=== PATIENT | male | born 1940 | race Caucasian/White ===

== ENCOUNTER 2019-01-15 04:29 | Observation (INO) ==
--- NOTE | 2019-01-15 04:49 | PROVIDER DOCUMENTATION ---
HPI-Syncope/Dizziness - General Chief Complaint: Near Syncope Stated Complaint: syncope Time Seen by Provider: 01/15/19 04:36 Allergies/Adverse Reactions: Patient Allergies Allergy/AdvReac Type Severity Reaction Status Date / Time morphine Allergy Severe Unknown Verified 09/24/13 13:36 Home Medications: Home Medication List Medication Instructions Recorded Confirmed Last Taken Type ATORVAstatin [Lipitor] 20 mg PO DAILY 06/18/12 01/15/19 09/28/13 03:00 History 20 Losartan [Cozaar] 50 mg PO DAILY 06/18/12 01/15/19 09/28/13 03:00 History 50 Aspirin EC 81 mg PO DAILY 01/15/19 01/15/19 Unknown History Cetirizine HCl [Zyrtec] 10 mg PO DAILY PRN PRN 01/15/19 01/15/19 Unknown History Latanoprost [Xalatan] 1 drp BOTH EYES QHS 01/15/19 01/15/19 Unknown History Loratadine [Claritin] 1 tab PO DAILY PRN PRN 01/15/19 01/15/19 Unknown History Meloxicam 1 cap PO DIRECTED 01/15/19 01/15/19 Unknown History Montelukast [Singulair] 10 mg PO DAILY 01/15/19 01/15/19 Unknown History Omeprazole 1 cap PO DAILY 01/15/19 01/15/19 Unknown History Indapamide 1.25 mg PO DAILY #0 01/16/19 01/15/19 09/28/13 03:00 Rx 1.25 - History of Present Illness-Syncope/Dizzy Nature of Presenting Problem: Patient reports awakening with substernal chest burning. After about an hour and a half, he went to go toward the bathroom to have a bowel movement when he passed out. States that he is still having mild chest burning. Denies any headache or head injury. Denies any recent similar symptoms and denies any prodromal nausea or lightheadedness Prior Episodes: reports: no prior history, single episode today Review of Systems - Adult - REVIEW OF SYSTEMS - ADULT Constitutional: reports: no symptoms reported Eyes: reports: no symptoms reported Ears, Nose, Mouth & Throat: reports: no symptoms reported Cardiovascular: reports: see HPI Respiratory: reports: no symptoms reported Gastrointestinal: reports: see HPI Genitourinary: reports: no symptoms reported Musculoskeletal: reports: no symptoms reported Integumentary: reports: no symptoms reported Neurological: reports: see HPI Psychiatric: reports: no symptoms reported Endocrine: reports: no symptoms reported Hematologic/Lymphatic: reports: no symptoms reported Allergic/Immunologic: reports: no symptoms reported Past History - Adult - PAST MEDICAL HISTORY-ADULT Review of Records: reports: Old Records Reviewed Physical Exam-General - PHYSICAL EXAM-ADULT Initial Vital Signs Reviewed: Yes - CONSTITUTIONAL General Appearance: appears well - EYES Eyes: PERRL/EOMI, pink conjunctivae - HEAD, EARS, NOSE, MOUTH & THROAT HENMT: normocephalic/atraumatic, moist mucous membranes, pharynx normal - NECK Neck: non-tender, full range of motion - RESPIRATORY Respiratory: chest non-tender, lungs clear, normal breath sounds, no pleuratic chest pain, no respiratory distress, no accessory muscle use - CARDIOVASCULAR Cardiovascular: normal peripheral pulses, regular rate, rhythm, no edema, no gallop - GASTROINTESTINAL (ABDOMEN) Abdominal Exam: non tender, soft, no organomegaly - LYMPHATIC Lymphatic: no adenopathy - MUSCULOSKELETAL Back Exam: normal inspection, no CVA tenderness Extremity: normal range of motion, non-tender, normal gait, normal inspection, no pedal edema - SKIN Integumentary: normal color, normal turgor, warm/dry - NEUROLOGIC Neurologic: 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 Routine AdmDCTranf 01/15/19 08:18 Active Activity - Up Ad Bridgett ORDERED Care 01/15/19 08:18 Active Orthostatic Vital Signs Q 8-HR ASSESS Care 01/15/19 08:18 Active Saline Loc DIRECTED Care 01/15/19 08:18 Active Vital Signs Order ROUTINE Care 01/15/19 08:18 Active Z-Document. for Tele Applied ORDERED Care 01/15/19 08:20 Completed Regular Diet Diet 01/15/19 08:20 Completed CHEST-2 VIEWS [RAD] Stat Exams 01/15/19 04:[address] HEAD W/O CONTRAST [CT] Stat Exams 01/15/19 04:49 Completed BASIC METABOLIC PANEL [CHEM] Routine Lab 01/16/19 06:01 Completed CBC WITH ELECTRONIC DIFF [HEME] Routine Lab 01/16/19 06:01 Completed CBC WITH ELECTRONIC DIFF [HEME] Stat Lab 01/15/19 05:23 Completed COMPREHENSIVE METABOLIC PANEL [CHEM] Stat Lab 01/15/19 05:23 Completed PROTIME WITH INR [COAG] Stat Lab 01/15/19 05:23 Completed PTT [COAG] Stat Lab 01/15/19 05:23 Completed TROPONIN T Q8H PRN Lab 01/15/19 09:11 Completed TROPONIN T Stat Lab 01/15/19 05:23 Completed URINALYSIS [URINALYSIS] Stat Lab 01/15/19 17:08 Completed 0.9% Sodium Chloride Inj [Ns] 1,000 ml Med 01/15/19 08:18 Discontinued IV 125 mls/hr Acetaminophen [Tylenol] Med 01/15/19 08:18 Discontinued 650 mg PO Q6H PRN PRN Omeprazole [Prilosec] Med 01/16/19 07:00 Discontinued 20 mg PO DAILY@0700 Ondansetron [Zofran] Med 01/15/19 08:18 Discontinued 4 mg IV Q4H PRN PRN Oxygen Device Routine Oth 01/15/19 08:19 Completed Telemetry [OM.EQ] Routine Oth 01/15/19 08:18 Active Carotid Ultrasound Routine Ther 01/15/19 08:58 Completed EKG [EKG] Stat Ther 01/15/19 04:37 Draft Echo Spec/Color Doppler Routine Ther 01/15/19 08:58 Completed Transfer/Admit Order [TRANSFER] Routine Transfer 01/15/19 08:21 Completed Result Diagrams: 01/16/19 06:01 01/16/19 06:01 - EKG 1 Time of EKG reading by physician:: 04:48 EKG Interpretation (*Must complete 3 of following elements*): Normal Rate: 75 Rhythm: sinus NV Interval: normal ST Wave: normal - CHANGE OF SHIFT REPORT (ED Provider) 1 Report Given and Care Transferred to:: anayeli Time of Transfer: 07:00 Items Pending: Physician Consult/Arrival (admission) Departure - Departure Date of Disposition Decision: 01/15/19 Time of Disposition Decision: 08:00 DIAGNOSIS: Syncope Disposition: ADMITTED INPATIENT 09 Certified Medical Emergency: Emergent Condition: Serious - Critical Care Note This patient required my direct & personal management of CC.: No Attestation - Physician/ RUSSELL Attestation The physician spent face to face time with patient:: Yes Advanced Practice Provider documentation review:: Supervising physician onsite and consulted in the evaluation and care of this patient. The physician did have a face to face encounter with the patient.
--- NOTE | 2019-01-15 05:18 | Diag Imaging Result Doc PS360 ---
EXAM: CT HEAD W/O CONTRAST HISTORY: ams TECHNIQUE: CT head without contrast COMPARISON: None. FINDINGS: No parenchymal hemorrhage. No epidural or subdural hematoma. No subarachnoid hemorrhage. There are mild microvascular ischemic changes. No mass identified on this noncontrasted exam. No hydrocephalus. No sinus opacification. IMPRESSION: 1.No hemorrhage 2.Mild microvascular ischemic changes This exam was performed using automated exposure control, adjustment of mA or kV according to patient size, and/or use of iterative reconstruction technique. Electronically signed by Mario Diallo 01/15/2019 5:16 AM
[2019-01-15 05:42] LABS: BASO# 0.03 X1000 (0.0-0.2); BASO% 0.2 % (0.0-0.8); EOS# 0.07 X1000 (0.0-0.7); EOS% 0.5 % (0.0-10.0); HEMATOCRIT 48.9 % (42.0-52.0); HEMOGLOBIN 16.6 g/dL (14.0-18.0); LYMPH# 1.37 X1000 (1.2-3.4); LYMPH% 10.1 % (20.5-51.1); MCH 27.8 PG (27-31); MCHC 33.9 g/dL (33-37); MCV 81.9 FL (81-99); MONO# 0.94 X1000 (0.11-0.59); MONO% 6.9 % (1.7-9.3); MPV 10.5 FL (7.4-10.4); NEUT# 11.21 X1000 (1.4-6.5); NEUT% 82.3 % (42.2-75.2); PLT 210 X1000 (130-400); RBC 5.97 XMIL (4.7-6.1); RDW 13.5 % (11.5-14.5); WBC 13.62 X1000 (4.8-10.8)
[2019-01-15 05:48] LABS: INR 0.93; PROTIME 13.2 Seconds (11.0-16.0)
[2019-01-15 06:07] LABS: ALB/GLOB RATIO 2.2; ALBUMIN 4.6 g/dL (3.5-5.0); CREATININE 1.3 mg/dL (0.7-1.2); TOTAL BILIRUBIN 0.77 mg/dL (0.20-1.00); TOTAL PROTEIN 6.7 g/dL (6.3-8.3)
--- NOTE | 2019-01-15 07:12 | Diag Imaging Result Doc PS360 ---
EXAM: CHEST-2 VIEWS HISTORY: ams TECHNIQUE: Chest two views COMPARISON: 09/24/2013 FINDINGS: The lungs are well expanded. The heart is not enlarged. The vessels are not distended. There are no infiltrates. No pleural effusions. IMPRESSION: No acute abnormality. Electronically signed by Mario Diallo 01/15/2019 7:10 AM
--- NOTE | 2019-01-15 07:55 | EKG Report ---
Test Performed on : 01/15/2019 04:37:47 AM Test Reason : ED. NO EKG ORDER FOR MUSE Blood Pressure : / mmHG Vent. Rate : 075 BPM Atrial Rate : 075 BPM P-R Int : 144 ms QRS Dur : 080 ms QT Int : 388 ms P-R-T Axes : 047 014 021 degrees QTc Int : 433 ms Normal sinus rhythm. Normal ECG When compared with ECG of 24-SEP-2013 13:19, No significant change was found Unconfirmed Result
[2019-01-15] MEDS ORDERED: NS 1,000 ML IV ONE (08:18)
[2019-01-15] MEDS ORDERED: ZOFRAN IV PRN (08:18)
[2019-01-15] MEDS ORDERED: TYLENOL PO PRN (08:18)
--- NOTE | 2019-01-15 15:34 | HISTORY AND PHYSICAL ---
CHIEF COMPLAINT: A 78-year-old white male woke up in the middle of the night with a burning pain in the substernal region. This was not a dull pressure-like sensation. He did not have shortness of breath or diaphoresis, but just a burning pain. He got up to go in the living room and took some Gaviscon, but as he was sitting in a chair he felt himself becoming weaker and weaker. He came in to get the attention of his because he did not feel well. She stated that he "fell backward like a tree". She stated that he was out for approximately 30 seconds or at least was not responding to her please at that time. He awakened with recollection of all the events and they called an ambulance. He was brought to the emergency room in [place], and had a workup which was fairly unremarkable with a negative CT scan of the head, negative chest x-ray, and generally normal labs with the exception of a slightly elevated troponin level. The patient's burning chest pain did dissipate at some point during the ER visit. PAST MEDICAL HISTORY: 1. Hypertension. 2. Hyperlipidemia. 3. History of chronic back pain. 4. History of gout. 5. Benign prostatic hyperplasia. 6. Known history of hiatal hernia. PAST SURGICAL HISTORY: 1. Lipoma removal. 2. Right hip replacement. 3. Right shoulder replacement. SOCIAL HISTORY: The patient is . He is a former smoker who quit in 1986, but still chews tobacco. HEALTH HISTORY: The patient had a colonoscopy in 2015. Pneumovax in 2013. He had a Myoview GXT in 2017, which showed a possible reversible defect inferiorly versus attenuation. ALLERGIES: Penicillin, hydrochlorothiazide, lisinopril, and morphine. PRESENT MEDICATIONS: 1. Lipitor 20 mg p.o. daily. 2. Prilosec 40 mg p.o. daily. 3. Singular 10 mg p.o. daily. 4. Indapamide 1.25 mg p.o. daily. 5. Losartan 50 mg p.o. daily. 6. Meloxicam 15 mg p.o. daily. REVIEW OF SYSTEMS: Patient denies any fever or chills. He did not have any premonitory symptoms. He stated that during his episode with the burning chest pain that his heart was "pounding hard but not really fast". Again, he denied diaphoresis. He did not have any nausea. He denied any apple abdominal pain. He stated his bowel movements have been normal. Otherwise, digestion has been normal. He has no genitourinary complaints. He has had no fever, weight loss or weight gain. He denies any swelling in his lower extremities. He has not had any other musculoskeletal complaints. PHYSICAL EXAMINATION: The patient is afebrile. Vital signs are stable at the time of my examination. His pulse rate was 79. His blood pressure 117/70 in the supine position. GENERAL: The patient is alert, oriented, conversive and appropriate. HEENT: The sclerae are anicteric. Oral mucosa seems adequately hydrated and normal coloration. NECK: No carotid bruits, JVD or thyromegaly noted. LUNGS: Clear to auscultation. CARDIOVASCULAR: Regular without appreciable murmur or gallop. ABDOMEN: Bowel sounds are present. Soft, nontender, and nondistended. GENITOURINARY: Patient had urinary frequency multiple times during the night, which was one of the things that woke him up initially. Up until last night, he did not have any significant urinary symptoms. EXTREMITIES: No peripheral edema. Peripheral pulses in the upper and lower extremities are easily palpable and symmetrical. NEUROLOGIC: Cranial nerves are intact. He moved all extremities spontaneously in the bed with no deficit. LABORATORY: White cell count 13.6, hemoglobin 16.6, hematocrit 48. Sodium was 146, BUN 16, creatinine 1.3, and glucose 123. Initial troponin was 0.172. I do not see a CK. Urinalysis was ordered, but is not available. ASSESSMENT AND PLAN: 1. The patient had abnormal troponin with some chest pain. I feel that we need to admit him for observation and draw some serial enzymes to make sure that he is okay in that regard. If these were to come back positive, we will consult Cardiology immediately for further input. I am going to get an echocardiogram and carotid ultrasound while getting the sequential cardiac enzymes. He will be on telemetry monitoring. 2. The patient has slightly elevated sodium and relatively hemoconcentration with a creatinine of 1.3 would indicate to me a slight volume contraction. I am going to give him a little fluids, and then recheck all lab parameters in the morning. cc: Gerald Abad MD
[2019-01-15 17:16] LABS: URINE SOURCE VOIDED
[2019-01-15 17:28] LABS: BILIRUBIN URINE NEGATIVE (NEGATIVE); BLOOD URINE NEGATIVE (NEGATIVE); COLOR YELLOW; GLUCOSE URINE NEGATIVE (NEGATIVE); KETONE URINE NEGATIVE (NEGATIVE); LEUKOCYTES URINE NEGATIVE (NEGATIVE); NITRITE URINE NEGATIVE (NEGATIVE); PH URINE 6.5; PROTEIN URINE TRACE mg/dL (NEGATIVE); SP GRAVITY URINE 1.018; TURBIDITY URINE CLEAR (CLEAR); UR EPITHELIAL CELLS <10 /HPF (<10); URINE BACTERIA NEGATIVE /HPF; URINE RBC <10 /HPF (<10); URINE WBC <10 /HPF (<10); UROBILINOGEN URINE 2 mg/dL (NORMAL)
[2019-01-16 06:34] LABS: BASO# 0.02 X1000 (0.0-0.2); BASO% 0.2 % (0.0-0.8); EOS# 0.25 X1000 (0.0-0.7); EOS% 2.4 % (0.0-10.0); HEMATOCRIT 43.5 % (42.0-52.0); IMM GRAN# 0.03 X1000 (0.0-0.04); IMM GRAN% 0.3 % (0.0-0.5); LYMPH# 2.18 X1000 (1.2-3.4); LYMPH% 20.7 % (20.5-51.1); MCH 28.1 PG (27-31); MCHC 34.5 g/dL (33-37); MCV 81.5 FL (81-99); MONO% 8.5 % (1.7-9.3); MPV 10.6 FL (7.4-10.4); NEUT# 7.17 X1000 (1.4-6.5); NEUT% 67.9 % (42.2-75.2); PLT 190 X1000 (130-400); RBC 5.34 XMIL (4.7-6.1); RDW 13.2 % (11.5-14.5); WBC 10.55 X1000 (4.8-10.8)
[2019-01-16 06:54] LABS: AGAP 14; BUN 19 mg/dL (8-22); CALCIUM 7.9 mg/dL (8.8-10.2); CHLORIDE 103 mmol/L (98-107); COSMO 282; CREATININE 1.1 mg/dL (0.7-1.2); ESTIMATED GFR > 60; GLUCOSE 105 mg/dL (70-104); POTASSIUM 3.3 mmol/L (3.5-5.1); SODIUM 140 mmol/L (136-145); TCO2 23 mmol/L (25-35)
[2019-01-16] MEDS ORDERED: PRILOSEC PO SCH (07:00)
[2019-01-16] MEDS ORDERED: KLOR-CON PO ONE (07:06)
[2019-01-16 07:50] VITALS: BP 151/64
[2019-01-16] MEDS ORDERED: COZAAR PO SCH (09:00)
[2019-01-16] MEDS ORDERED: LIPITOR PO SCH (09:00)
[2019-01-16] MEDS ORDERED: ASPIRIN EC PO SCH (09:00)
[2019-01-16] MEDS ORDERED: SINGULAIR PO SCH (09:00)
--- NOTE | 2019-01-16 09:38 | ECHO REPORT ---
ORDER DATE: 01/15/2019 MEASUREMENTS: 1. Septal thickness 1.1. 2. Left ventricular internal diameter diastole 4.6. 3. Posterior wall thickness 1.1. 4. Left ventricular internal diameter in systole 2.9. 5. Aortic root 3.4. 6. Left atrium 3.1. SUMMARY: 1. Adequate quality study. 2. Fibrocalcific changes of aortic valve demonstrated with reduced aortic valve leaflet mobility. Peak gradient across the aortic valve is 28 mmHg with a mean gradient of 17 mmHg. The calculated aortic valve area by Doppler is 1.1 cm2 suggesting moderate aortic stenosis. The aortic root is normal in size. There is mild dilatation of proximal ascending aorta. Mitral, tricuspid and pulmonic valves are without evidence of structural abnormality with trace tricuspid regurgitation and moderate pulmonic insufficiency. The estimated systolic PA pressure by Doppler is 40 mmHg suggesting mild pulmonary hypertension. 3. Normal left ventricular chamber size with mild concentric left hypertrophy is demonstrated. Estimated left ejection fraction appears to be at least 70%. No regional wall abnormalities evident. Left atrium, right atrium, right ventricle are normal in size with grossly preserved right ventricular systolic function. 4. No pericardial effusion. 5. Appearance of inferior vena cava suggests normal central venous pressure. CONCLUSIONS: 1. Moderate aortic stenosis with mild aortic regurgitation. 2. Mild dilatation of proximal ascending aorta. 3. Trace tricuspid regurgitation with mild pulmonary hypertension by Doppler. 4. Mild concentric left hypertrophy with estimated left ejection fraction at least 70%. cc: MD Gerald Strickland MD
== END 2019-01-16 08:50 | disposition home or self-care (01) ==
LOC: SUPCPDRO → ED 04:29 → 4N 04:29
PROVIDERS: ADMIT Internal Medicine; ATTEND Internal Medicine
CPT/HCPCS: 70450; 71020; 71046; 80048; 80053; 81001; 82550; 82948; 84484; 85025; 85610; 85730; 93005; 93306; 93880; 94761; A9270; J7030; XXXXX